=== PATIENT | male | born 1995 | race Caucasian/White ===

== ENCOUNTER 2023-04-04 14:31 | Emergency (ER) | payer OTHER ==
[~2023-04-04] VITALS: Ht 175.3 cm; Wt 103.3 kg
[2023-04-04] MEDS ORDERED: methylPREDNISolone sod succ/PF 40mg inj. IM SCH (14:55)
[2023-04-04] MEDS ORDERED: diphenhydrAMINE 50 mg/ml inj IM ONE (14:55)
[2023-04-04 15:59] VITALS: BP 132/72; PULSE 71; RESP 16; TEMP 98.1; O2SAT 99
[2023-04-04] MEDS ORDERED: PRED20TA PO (16:20)
[2023-04-04] MEDS ORDERED: DIPH25CA83 PO (16:20)
== END 2023-04-04 16:39 | disposition home or self-care (01) ==
LOC: ER 14:32
DX: T78.40XA Allergy, unspecified, initial encounter (principal); X58.XXXA Exposure to other specified factors, initial encounter
CPT/HCPCS: 96372; 99284; J1200; J2920